=== PATIENT | female | born 1975 ===

== ENCOUNTER 2021-12-19 08:00 | Outpatient (CLI) | payer SELFPAY ==
--- NOTE | 2021-12-20 11:38 | XRAY Report ---
PROCEDURE: Finger(s) LT INDICATIONS: LACERATION WITHOUT FB LEFT RING FINGER TECHNIQUE: AP hand, 3 views of the left ring finger(s) acquired. COMPARISON: None FINDINGS: Bones: No acute fractures or dislocations. No suspicious bony lesions. Tiny chronic appearing ossi fication noted over the volar aspect of the left fourth finger proximal interphalangeal joint. Soft tissues: No suspicious soft tissue calcifications. Soft tissue swelling with soft tissue lacer ation noted over the ulnar aspect of the left ring finger at the level of the middle phalanx. No radi opaque soft tissue foreign body. IMPRESSION: Left ring finger without acute fracture or radiopaque soft tissue foreign bodies. Reviewed by: Hugo Carlson MD on 12/20/2021 11:37 AM PDT Approved by: Hugo Carlson MD on 12/20/2021 11:37 AM PDT Station ID: [id number]
== END 2021-12-19 23:59 | disposition home or self-care (01) ==
LOC: DI.S 08:00
PROVIDERS: ATTEND Emergency Medicine
DX: S61.215A Laceration without foreign body of left ring finger without damage to nail, initial encounter (principal)